=== PATIENT | female | born 1975 | race Caucasian/White ===

== ENCOUNTER 2018-03-08 14:03 | Outpatient (CLI) | payer BC | END 2018-03-08 14:04 | disposition home or self-care (01) | LOC: BICMAMMO 14:03 | PROVIDERS: ATTEND Obstetrics & Gynecology | DX: Z12.31 Encounter for screening mammogram for malignant neoplasm of breast (principal) | CPT/HCPCS: 77063; 77067 ==

== ENCOUNTER 2019-04-04 15:39 | Outpatient (CLI) | payer BC ==
--- NOTE | 2019-04-04 16:53 | ULT ---
BILATERAL BREAST ULTRASOUND: 04/04/19 PROVIDED CLINICAL HISTORY: Bilateral breast masses. FINDINGS: Correlation is made with screening mammogram performed 03/28/19. Limited sonographic interrogation of the outer aspect of the right breast in the region of mammograph ic concern demonstrates an oval anechoic structure with well-defined borders and enhanced through tra nsmission compatible with a cyst. This measures about 1.2 cm and corresponds with the largest mass se en mammographically. Adjacent smaller similar structures are present likely corresponding to the smal ler masses seen. On the left, limited sonographic interrogation of the 3 o'clock position of the left breast demonstra cali a lobulated, taller than wide hypoechoic mass measuring at least 1.1 cm in greatest dimension. IMPRESSION: 1. 1 cm solid hypoechoic mass involves the left breast. BI-RADS 4: Suspicious Abnormality - Ultr asound guided biopsy is recommended. Results and recommendations discussed with the patient. 2. Simple cysts are seen corresponding to the mammographic findings in the right breast. BIRADS 2: Benign Finding(s) POS: OFF
== END 2019-04-04 15:40 | disposition home or self-care (01) ==
LOC: BICULT 15:39
PROVIDERS: ATTEND Obstetrics & Gynecology
DX: N63.10 Unspecified lump in the right breast, unspecified quadrant (principal); N63.21 Unspecified lump in the left breast, upper outer quadrant; N60.01 Solitary cyst of right breast

== ENCOUNTER 2019-05-13 09:31 | Outpatient (CLI) | payer BC ==
--- NOTE | 2019-05-13 09:49 | MMO ---
Left Breast MAMMO Unilat Diag DDI LT. CLINICAL HISTORY: Patient is 44 years old and is seen for diagnostic exam. The patient has no family history of breast cancer. The patient has no personal history of cancer. VIEWS: The views performed were: . FILMS COMPARED: The present examination has been compared to prior imaging studies performed at [facility] on 05/02/2016, 03/08/2018 and 04/04/2019. This study has been interpreted with the assistance of computer-aided detection. MAMMOGRAM FINDINGS: The breast is heterogeneously dense, which could obscure a lesion on mammography. There is a new biopsy clip seen in the left breast. IMPRESSION: NEW BIOPSY CLIP IN THE LEFT BREAST IS CONFIRMED UTILIZING POST PROCEDURE MAMMOGRAM. THE RESULTS OF THIS EXAM WERE SENT TO THE PATIENT. MAMMOGRAPHY NOTE: 1. A negative mammogram report should not delay a biopsy if a dominant of clinically suspicious mass is present. 2. Approximately 10% to 15% of breast cancers are not detected by mammography. 3. Adenosis and dense breasts may obscure an underlying neoplasm. Reported by: LING VARELA MD Electonically Signed: [id number]
== END 2019-05-13 09:32 | disposition home or self-care (01) ==
LOC: BICMAMMO 09:31
PROVIDERS: ATTEND Specialist
DX: N63.20 Unspecified lump in the left breast, unspecified quadrant (principal)

== ENCOUNTER 2019-05-29 07:48 | Outpatient (CLI) | payer BC ==
[2019-05-29 13:03] LABS: #Basophils 0.1 thou/uL (0.0-0.2); #Eosinphils 0.4 thou/uL (0.0-0.7); #Monocytes 0.4 thou/uL (0.11-0.59); #Neutrophils 3.4 thou/uL (1.40-6.50); %Basophils 1.4 % (0.0-1.0); %Eosinophils 6.5 % (0.0-10.0); %Lymphocytes 31.9 % (21.0-51.0); %Neutrophils 53.3 % (42.0-75.0); Hemoglobin 15.4 g/dL (12.0-16.0); Mean Corpuscular HGB CONC 34.2 g/dL (32.0-36.0); Mean Corpuscular Hemoglobin 31.5 pg (27.0-31.0); Mean Platelet Volume 7.9 fL (7.4-10.4); Platelet Count 253 thou/uL (130-400); RBC Distribution Width 11.5 % (11.5-14.5); Red Blood Cell (RBC) Count 4.91 mill/uL (4.20-5.40); White Blood Cell (WBC) Count 6.3 thou/uL (4.8-10.8)
[2019-05-29 13:27] LABS: Anion Gap 14 mmol/L (10-20); BUN (Urea Nitrogen) 9 mg/dL (7.0-18.7); Calc. Creatinine Clearance 0 mL/min (70-130); Calcium 9.4 mg/dL (7.8-10.44); Carbon Dioxide 22 mmol/L (22-29); Chloride 108 mmol/L (98-107); Estimated GFR-MDRD 54; Glucose 83 mg/dL (70-105); Potassium 4.1 mmol/L (3.5-5.1); Sodium 140 mmol/L (136-145)
== END 2019-05-29 07:49 | disposition home or self-care (01) ==
LOC: LABBT 07:48
PROVIDERS: ATTEND Specialist
DX: Z01.812 Encounter for preprocedural laboratory examination (principal); D24.2 Benign neoplasm of left breast
CPT/HCPCS: 80048; 85025

== ENCOUNTER 2019-06-06 07:16 | Day surgery (SDC) | payer BC ==
[2019-05-29 11:23] VITALS: BMI 29.8
[2019-06-06] MEDS ORDERED: Ketorolac Tromethamine 30 MG/ML VIAL ONE (07:52)
[2019-06-06] MEDS ORDERED: Lidocaine 2% PF 5 ML VIAL ONE (09:50)
[2019-06-06] MEDS ORDERED: Bupivacaine HCl 0.5%/Epinephrine 1:200,000/PF 30 ml Vial ONE (09:50)
[2019-06-06] MEDS ORDERED: Fentanyl 100 MCG/2 ML VIAL ONE (10:00)
[2019-06-06] MEDS ORDERED: Promethazine HCl 25 MG/ML VIAL ONE (11:50)
--- NOTE | 2019-06-06 12:25 | MMO ---
SURGICAL SPECIMEN: There is a single mammographic specimen submitted for interpretation. Needle localization was perform ed by Dr. Drake. With regards to that sample, there does appear to be a wire and clip. Findings conveyed by the reefer engineer, Bety, to the OR, on 06/06/19 at 1059 hours. CODE CR. POS: ADELA
[2019-06-06] MEDS ORDERED: Lidocaine 1% PF 5 ML VIAL ONE (13:49)
[2019-06-06] MEDS ORDERED: Metoclopramide HCl 10 MG/2 ML VIAL ONE (13:49)
[2019-06-06] MEDS ORDERED: PROPOFOL 200 MG/20 ML VIAL ONE (13:49)
[2019-06-06] MEDS ORDERED: Ondansetron PF 4 MG/2 ML Vial ONE (13:49)
--- NOTE | 2019-06-07 13:43 | OP ---
DATE OF PROCEDURE: 06/06/2019 PREOPERATIVE DIAGNOSIS: Left breast papilloma. POSTOPERATIVE DIAGNOSIS: Left breast papilloma. PROCEDURE PERFORMED: Ultrasound-guided left breast needle localized lumpectomy. ANESTHESIA: General endotracheal. INDICATIONS: The patient is a 44-year-old female. She recently had an ultrasound-guided needle biopsy of left breast lesion revealing a papilloma, for which a completion excision was recommended. She is taken to the operating room at this time for this procedure. DESCRIPTION OF OPERATION: Informed consent was obtained. The patient was taken to the operating room, where general anesthesia was obtained with the patient in supine position. Left breast was prepped with ChloraPrep and draped in sterile fashion. Ultrasound was utilized to identify a hypoechoic lobulated lesion at the 3 o'clock radian of the left breast. This is pretty close to the areolar margin. Its location was marked within the breast in a grid type fashion. I decided to use a circumareolar incision. I then utilized ultrasound to place a localizing needle through the lesion in a superior to inferior fashion entering through the areolar margin superiorly. Local anesthetic was infiltrated using 0.25% Marcaine with epinephrine. A circumareolar lateral based incision was created. Dissection was carried through skin and subcutaneous tissue. Dissection was carried down into the breast tissue and flaps were raised medially, laterally and superiorly. Dissection was carried widely around the localizing needle to obtain appropriate wide excision of tissue around the localizing needle. The specimen was removed intact. The specimen was interrogated with ultrasound, which showed appropriate margins of tissue around the papilloma. The specimen was tagged with suture for orientation and passed off the field for specimen mammography. This revealed a clip present within the lesion. Meticulous hemostasis was obtained within the wound. Additional local anesthetic was infiltrated. The wound was closed in layers with 3-0 and 4-0 Monocryl sutures. Dermabond was placed externally. There were no complications. The patient tolerated the procedure well and was taken to recovery room in stable condition. Job ID: [id number]
== END 2019-06-06 13:26 | disposition home or self-care (01) ==
LOC: SDC 07:16
PROVIDERS: ATTEND Specialist
PROC: 0HBU0ZZ Excision of Left Breast, Open Approach (ICD-10-PCS; principal; 2019-06-06)
DX: D24.2 Benign neoplasm of left breast (principal)
CPT/HCPCS: 76098; 88307; 88341; 88342; 88360; J0131; J0670; J0690; J1885; J2001; J2405; J2550; J2704; J2765; J3010